=== PATIENT | male | born 2000 | race Hispanic/Latino ===

== ENCOUNTER 2022-06-13 14:46 | Emergency (ER) | payer SELFPAY ==
[~2022-06-13] VITALS: Ht 170.2 cm; Wt 95.3 kg
[2022-06-13] MEDS ORDERED: MULTIVITAMINS- 12 INJECTION 10 ML, FOLIC ACID MDV 1 MG, THIAMINE HCL INJ 100 MG in SODI... IV ONE (15:30)
[2022-06-13] MEDS ORDERED: CHLORDIAZEPOXIDE HCL 25 MG CAP PO ONE (15:30)
[2022-06-13] MEDS ORDERED: ONDANSETRON HCL INJ 2MG/ML 2ML 2 MG/ML VIAL IV PRN (15:30)
[2022-06-13] MEDS ORDERED: ONDANSETRON HCL 4 MG ORAL DISINTEGRATING TAB PO ONE (16:30)
[2022-06-13] MEDS ORDERED: ONDANSETRON ODT4 MG PO (16:36)
[2022-06-13] MEDS ORDERED: CHLORDIAZEPOXID25 MG PO ×2 (16:42→16:48)
[2022-06-13] MEDS ORDERED: ONDANSETRON HCL4 MG PO (17:03)
[2022-06-13] MEDS ORDERED: BENTYL10 MG/1 ML PO (17:04)
== END 2022-06-13 18:40 | disposition home or self-care (01) ==
LOC: ER 15:28
DX: F10.139 Alcohol abuse with withdrawal, unspecified (principal); R25.3 Fasciculation; R25.1 Tremor, unspecified
CPT/HCPCS: 99283; J3411; J7030